=== PATIENT | male | born 1965 | race Caucasian/White ===

== ENCOUNTER 2022-05-13 02:06 | Emergency (ER) | payer SELFPAY ==
[~2022-05-13] VITALS: Ht 182.9 cm; Wt 85.0 kg
[2022-05-13 02:20] VITALS: BP 138/78
[2022-05-13] MEDS ORDERED: ACETAMINOPHEN 325MG TABLET PO ONE (05:45)
[2022-05-13] MEDS ORDERED: LIDOCAINE HCL/PF 1% 10 MG/ML 5ML VIAL INFIL ONE (07:00)
[2022-05-13] MEDS ORDERED: TOPUD PO (08:03)
[2022-05-13] MEDS ORDERED: CEPH500C2 PO (08:03)
[2022-05-13] MEDS ORDERED: SULF1TAB48 PO (08:03)
== END 2022-05-13 08:45 | disposition home or self-care (01) ==
LOC: ER 02:06
DX: S60.551A Superficial foreign body of right hand, initial encounter (principal); X58.XXXA Exposure to other specified factors, initial encounter; Y93.89 Activity, other specified; Y92.89 Other specified places as the place of occurrence of the external cause; Y99.8 Other external cause status
CPT/HCPCS: 20520; 73110; 99284; J3490; Z7610